=== PATIENT | female | born 1990 | race Caucasian/White ===

== ENCOUNTER 2017-07-05 15:05 | Observation (INO) | payer OTHER ==
[2017-07-05 15:09] VITALS: BMI 21.0
--- NOTE | 2017-07-05 15:25 | PDOC ---
History of Present Illness - General History Source: Patient Exam Limitations: No Limitations <Easton Dumont - Last Filed: 07/05/17 19:12> <DeborahDickson arreola - Last Filed: 07/11/17 00:17> - General Chief Complaint: Syncope/Near Syncope Stated Complaint: SYNCOPE Time Seen by Provider: 07/05/17 15:22 - History of Present Illness Initial Comments: 07/05/17 18:41 The patient is a 26 year old female with no significant past medical history who presents to the ED s/p a syncopal episode earlier today. Patient was at work when she lost consciousness 2 hours prior to her arrival to the ED. As per coworkers, the patient lost consciousness, fell onto her face, and became very stiff. Patient states this episode lasted for 2 minutes. She does not recall the syncopal episode but reports feeling very hot prior to losing consciousness and occsaional lightheadedness. 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 Patient denies eating any food earlier today and did not have anythin to drink beside drinking 1 can of redbull and doing 1 line of coke. As per boyfriend, the patient was acting very slow, tired, and not speaking on her way to the ED and had drank some water prior to arrival.. On interview, patient appears at baseline and was feeling better. There was no associated chest pain, headache, dizziness, sob, abd pain, back pain, vision changes, numbness/tingling weakness earlier today prior to syncopal episode. No recent illness, fever/chills,cough, swelling, diarrhea, melena, bpr. Patient reports a history of one-time seizure, lasting 2-3 minutes before resolving, in her early 20s, and did not get treated for it. Denies recent travel. 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 Patient reports Xanax, Cocaine, and alcohol use. (Easton Dumont) Past History <Easton Dumont - Last Filed: 07/05/17 19:12> - Past Medical History Seizures: Yes - Psycho/Social/Smoking Cessation Hx Anxiety: No Suicidal Ideation: No Smoking Status: Yes Smoking History: Current every day smoker Have you smoked in the past 12 months: Yes Number of Cigarettes Smoked Daily: 20 Information on smoking cessation initiated: Yes 'Breaking Loose' booklet given: 07/05/17 Hx Alcohol Use: (social) <Dickson Cabrera - Last Filed: 07/11/17 00:17> - Past Medical History Allergies/Adverse Reactions: Allergies Allergy/AdvReac Type Severity Reaction Status Date / Time No Known Allergies Allergy Verified 07/05/17 15:05 Home Medications: Ambulatory Orders Cephalexin Monohydrate [Keflex -] 500 mg PO Q6H #28 capsule 07/06/17 Levetiracetam [Keppra -] 1,000 mg PO BID #60 tablet 07/06/17 Review of Systems - Review of Systems Able to Perform ROS?: Yes All Other Systems: Reviewed and Negative <Easton Dumont - Last Filed: 07/05/17 19:12> <Dickson Cabrera - Last Filed: 07/11/17 00:17> - Review of Systems Comments:: 07/05/17 18:41 CONSTITUTIONAL: No reported: Fever, Chills, Diaphoresis, Generalized Weakness, Malaise, Loss of Appetite HEENT: No reported: Rhinorrhea, Nasal Congestion, Throat Pain, Throat Swelling, Difficulty Swallowing, Mouth Swelling, Ear Pain, Eye Pain, Visual Changes CARDIOVASCULAR: No reported: Chest Pain, Syncope, Palpitations, Irregular Heart Rate, Lightheadedness, Peripheral Edema RESPIRATORY: No reported: Cough, Shortness of Breath, SOB with Exertion, Orthopnea, Wheezing , Stridor, Hemoptysis GASTROINTESTINAL: No reported: Abdominal pain, Abdominal Distension, Nausea, Vomiting, Diarrhea, Constipation, Melena, Hematochezia GENITOURINARY: No reported: Dysuria, Frequency, Urgency, Hesitancy, Flank Pain, Genital Pain MUSCULOSKELETAL: No reported: Myalgia, Arthralgia, Joint Swelling, Back pain, Neck Pain SKIN: No reported: Rash, Itching, Pallor HEMEATOLOGIC/IMMUNOLOGIC: No reported: Easy Bleeding, Easy Bruising, Lymphadenopathy, Frequent infections ENDOCRINE: No reported: Unexplained Weight Gain, Unexplained Weight Loss, Heat Intolerance , Cold Intolerance NEUROLOGIC: + syncope No reported: Headache, Focal Weakness, Paresthesias, Vertigo, Lightheadedness, Unsteady Gait, Mental Status Changes, Incontinence PSYCHIATRIC: No reported: Anxiety, Depression (Easton Dumont) *Physical Exam <Easton Dumont - Last Filed: 07/05/17 19:12> <Dickson Cabrera - Last Filed: 07/11/17 00:17> - Vital Signs Last Vital Signs Temp Pulse Resp BP Pulse Ox 98.3 F 51 L 17 107/67 100 07/06/17 14:46 07/06/17 14:46 07/06/17 14:46 07/06/17 14:46 07/06/17 14:46 - Physical Exam Comments: 07/05/17 18:42 GENERAL: The patient is awake, alert, and fully oriented, Nontoxic - in no acute distress. HEAD: Normocephalic, atraumatic. EYES: extraocular movements intact, sclera anicteric, conjunctiva clear. ENT: + dry mucous membranes. Normal voice. NECK: Normal range of motion, supple LUNGS: Breath sounds equal, clear to auscultation bilaterally. No wheezes, no rhonchi, no rales. HEART: Regular rate and rhythm, without murmur, rub or gallop. ABDOMEN: Soft, nontender, normoactive bowel sounds. No guarding, no rebound.No CVA tenderness EXTREMITIES: Normal range of motion, no edema. No clubbing or cyanosis. No cords, erythema, or tenderness. MUSCULOSKELETAL: + Mild tenderness in the thoracic on the left NEUROLOGICAL: No facial assymetry, Normal speech, PSYCH: Normal mood, normal affect. SKIN: + Small ecchymosis on the right cheek without any focal bony tenderness. Warm, Dry, normal turgor (Easton Duomnt) Heart Score/ECG Review <Easton Dumont - Last Filed: 07/05/17 19:12> <Dickson Cabrera - Last Filed: 07/11/17 00:17> - ECG Impressions Comment:: 07/05/17 16:00 Twelve-lead EKG was performed and reviewed by me. There is normal sinus rhythm with a normal rate. Rate of 81 The axis is normal. The intervals are normal. There is normal R wave progression There are no ST or T wave abnormalities. Impression: Normal twelve-lead EKG (Dickson Cabrera) ED Treatment Course - LABORATORY CBC & Chemistry Diagram: 07/05/17 15:30 07/05/17 15:30 <Easton Dumont - Last Filed: 07/05/17 19:12> - LABORATORY CBC & Chemistry Diagram: 07/06/17 08:10 07/06/17 08:10 <Dickson Cabrera - Last Filed: 07/11/17 00:17> - ADDITIONAL ORDERS Additional order review: 07/05/17 18:20 Urine Culture - Final Urine - Urine Clean Catch Escherichia Coli 07/05/17 15:30 RBC 4.07 MCV 92.4 MCHC 35.3 RDW 14.0 MPV 8.4 Neutrophils % 83.3 H Lymphocytes % 13.1 Monocytes % 2.4 L Eosinophils % 0.3 Basophils % 0.9 - RADIOLOGY Radiology Studies Ordered: Category Date Time Status HEAD CT WITHOUT CONTRAST [CT] Stat CT Scan 07/05/17 17:54 Completed CHEST X-RAY PORTABLE* [RAD] Stat Radiology 07/05/17 18:20 Completed Radiograph Interpretation: 07/05/17 18:59 CT/HEAD CT WITHOUT CONTRAST Impression: No evidence of a focal intracranial lesion or hemorrhage seen. Reported by: Wilver Cox 07/05/17 19:12 RAD/CHEST X-RAY PORTABLE Impression: Unremarkable examination. Reported by: Wilver Cox (Easton Dumont) - Medications Given in the ED: ED Medications Discontinued Medications Generic Name Dose Route Start Last Admin Trade Name Freq PRN Reason Stop Dose Admin Acetaminophen 1,000 mg 07/05/17 20:24 07/05/17 18:10 Ofirmev Injection - IVPB 07/05/17 20:25 1,000 mg NOW ONE Administration Acetaminophen 650 mg 07/06/17 00:09 07/06/17 00:00 Tylenol Suppository - SC 650 mg Q6H PRN Administration FEVER OR PAIN Sodium Chloride 1,000 mls @ 1,000 mls/hr 07/05/17 15:29 07/05/17 15:30 Normal Saline - IV 07/05/17 16:28 1,000 mls/hr .Q1H ONE Administration Ceftriaxone Sodium 1 gm/ 50 mls @ 100 mls/hr 07/05/17 17:59 07/05/17 18:35 Dextrose IVPB 07/05/17 18:28 100 mls/hr ONCE ONE Administration Dextrose/Sodium Chloride 1,000 mls @ 75 mls/hr 07/06/17 03:45 07/06/17 05:30 D5-1/2ns - IV 75 mls/hr ASDIR JOSIE Administration Levetiracetam 1,500 mg 07/05/17 19:01 07/05/17 19:05 Keppra Injection - IVPB 07/05/17 19:02 1,500 mg ONCE ONE Administration Levetiracetam 1,000 mg 07/06/17 10:00 07/06/17 10:27 Keppra Injection - IVPB 1,000 mg BID JOSIE Administration Lorazepam 2 mg 07/05/17 18:03 07/05/17 17:50 Ativan Injection - IVPUSH 07/05/17 18:04 2 mg ONCE ONE Administration Medical Decision Making <Easton Dumont - Last Filed: 07/05/17 19:12> <Dickson Cabrera - Last Filed: 07/11/17 00:17> - Medical Decision Making 07/05/17 15:42 26y F no notable pmhx presents with syncopal episode with possible seizure like activity whiel at work. The pt did not eat or drink anything this morning beside a redbull, and small amt of cocaine. The pt remembers feeling warm prior to syncopizing, it was witnessed by work mates and tehre was smoe tonic activity noted, no tongue biting nor urinary incontinence. on exam pt appears well, in no distress, she has a small ecchymotic markw ithout focal bony tendernes on her R cheek. suspect dehydration --> syncope with some tonic activty due to hypoperfusion of brain rather than true seizure. will hydrate the pt will ck basic labs, ua/preg will reassess A portion of this note was documented by scribe services under my direction. I have reviewed the details of the note, within reason, and agree with the documentation with the following case summary and management plan written by me 07/05/17 17:56 the pt had an tonic clonic seizure episode, lasting approximately 1 minute, with post ictal period seizure activity stopped prior to administration of 2mg ativan pts UA c/w uti will further hydrate the pt will obtain CT head to r/o organic brain dz pt had a rectal temp will recheck a UA from a catherized specime to confirm UTI - considered meningitis, but pt denies any headache/neck pain and has no signs of meningusmus if not will need LP to r/o meningitus/encephalitis Also consider possible toxicologic cause due to the patient's history of drug use, will send a utox last ETOH or xanax use was last week. 07/05/17 19:02 07/05/17 19:03 CT negative for acute pathology case dw Dr. arzola agree with observation woud load with keprra for now as this is her 2nd seizure even if it was induced by tox vs infectious CRITICAL CARE DOCUMENTATION: I spent ~35 minutes of Critical Care time, excluding separately billable procedures, involving high complexity decision making to assess, manipulate and support vital system function(s) to treat single or multiple vital organ system failure and/or to prevent further life threatening deterioration of the patient' s condition. 07/05/17 19:[address] arzola pt may want to leave AMA as she does not like being in hospitals I had an extensive discussion with the patient regarding staying in the hospital but its seems that she still wants to leave. dr. grubbs is in hospital and will try to see her before she leaves [facility] with treating her with 1000mg BID of keppra an abx for UTI will sign pt out to dr. moeller to reassess the pt and disposition the patient (Dickson Cabrera) *DC/Admit/Observation/Transfer <Easton Dumont - Last Filed: 07/05/17 19:12> <Dickson Cabrera - Last Filed: 07/11/17 00:17> Diagnosis at time of Disposition: UTI, Seizure - Discharge Dispostion Condition at time of disposition: Stable - Prescriptions - Attestations Scribe Attestion: 07/05/17 18:42 Documentation prepared by Easton Dumont, acting as medical office supervisor for Dickson Cabrera MD (Easton Dumont)
[2017-07-05] MEDS ORDERED: SODIUM CHLORIDE 1,000 ML IV ONE (15:29)
[2017-07-05 16:13] LABS: PH,URINE 7.5 (4.5-8); URINE BILIRUBIN Negative (NEGATIVE); URINE BLOOD 1+ (NEGATIVE); URINE GLUCOSE (UA) Negative (NEGATIVE); URINE KETONE Negative (NEGATIVE); URINE NITRITE Negative (NEGATIVE); URINE UROBILINOGEN 0.2 (0.2-1.0)
[2017-07-05 16:16] LABS: URINE COLOR YELLOW; URINE LEUK ESTERASE TRACE (NEGATIVE); URINE PROTEIN 1+ (NEGATIVE)
[2017-07-05 16:17] LABS: URINE APPEARANCE CLOUDY
[2017-07-05 16:28] LABS: BASOPHIL 0.9 % (0-2.0); EOSINOPHIL 0.3 % (0-4.5); MCH 32.6 pg (25.7-33.7); MCHC 35.3 g/dl (32.0-36.0); MEAN CELL VOLUME 92.4 fl (80-96); MEAN PLT VOLUME 8.4 fl (7.5-11.1); NEUTROPHILS 83.3 % (42.8-82.8); PLATELET COUNT 214 K/MM3 (134-434); WHITE BLOOD COUNT 11.9 K/mm3 (4.0-10.8)
[2017-07-05 16:31] LABS: ALBUMIN 3.9 g/dl (3.5-5.0); ALK PHOS 56 U/L (32-92); ANION GAP 7 (8-16); BILIRUBIN,TOTAL 0.6 mg/dl (0.2-1.0); CALCIUM 8.9 mg/dl (8.4-10.2); CO2 24 mmol/L (22-28); CREATININE 0.6 mg/dl (0.6-1.3); GLUCOSE,RANDOM 106 mg/dl (74-106); SGOT/AST 33 U/L (10-42); SGPT/ALT 28 U/L (10-40); TOT PROT 6.2 g/dl (6.4-8.3)
[2017-07-05 17:07] LABS: URINE BACTERIA MANY /hpf (NEGATIVE); URINE RBC 0-2 /hpf (0-3)
[2017-07-05] MEDS ORDERED: CEFTRIAXONE 1 GM in DEXTROSE 5%-WATER - 50 ML IVPB ONE (17:59)
[2017-07-05] MEDS ORDERED: cefTRIAXone SODIUM 1 GM VIAL ONE (18:02)
[2017-07-05] MEDS ORDERED: ACETAMINOPHEN INJECTION 100 ML IVPB ONE (18:07)
[2017-07-05 18:34] LABS: URINE BILIRUBIN Negative (NEGATIVE); URINE BLOOD 1+ (NEGATIVE); URINE GLUCOSE (UA) Negative (NEGATIVE); URINE KETONE Negative (NEGATIVE); URINE LEUK ESTERASE Negative (NEGATIVE); URINE NITRITE Positive (NEGATIVE); URINE PROTEIN Trace (NEGATIVE); URINE UROBILINOGEN 0.2 (0.2-1.0)
[2017-07-05 18:35] LABS: URINE APPEARANCE CLOUDY; URINE COLOR YELLOW
[2017-07-05] MEDS ORDERED: levETIRAcetam 500 MG/5 ML INJECTION VIAL IVPB ONE ×2 (19:01→19:04)
--- NOTE | 2017-07-05 19:55 | CON.NEURO ---
Consult - History of Present Illness History of Present Illness: 26 year old female , no significant medical problem. She has history of seizures 10 year ago . She is not taking any seizures medication. Patient had two episode of seizures. one in ed in front of ed Doctor. She has generalized tonic clonic activity, eye rolling back and body stiffened. Patient has post ictal confusion and shew as given ativan she was also doing cocaine this morning. History of anxiety No medical history in past - Alcohol/Substance Use Hx Alcohol Use: (social) - Smoking History Smoking history: Current every day smoker Have you smoked in the past 12 months: Yes Aproximately how many cigarettes per day: 20 Home Medications - Allergies Allergies/Adverse Reactions: Allergies Allergy/AdvReac Type Severity Reaction Status Date / Time No Known Allergies Allergy Verified 07/05/17 15:05 - Home Medications Home Medications: Ambulatory Orders NK [No Known Home Medication] 07/05/17 Physical Exam-Neuro Vital Signs: Vital Signs Temperature 98 F 07/05/17 15:05 Pulse Rate 97 H 07/05/17 15:05 Respiratory Rate 18 07/05/17 15:05 Blood Pressure 118/68 07/05/17 15:05 O2 Sat by Pulse Oximetry (%) 100 07/05/17 15:05 Labs: CBC, BMP 07/05/17 15:30 07/05/17 15:30 NIH Stroke Scale - Total Score NIH Stroke Scale Score: 0 Imaging - Results Cat Scan: Report Reviewed Assessment/Plan two episode of seizure Hpi 26 year old female , no significant medical problem. She has history of seizures 10 year ago . She is not taking any seizures medication. Patient had two episode of seizures. one in ed in front of ed Doctor. She has generalized tonic clonic activity, eye rolling back and body stiffened. Patient has post ictal confusion and shew as given ativan she was also doing cocaine this morning. History of anxiety No medical history in past Neurological Examination Alert follow command, post ictal confused no neck stiffness no face asymmetry, pupils is reactive, moving all extremity , strength is 5/5 ct head is normal Assessment- new onset seizures , due to cocaine and uti, no evidence of meningiits. Patient has two episode of seizure, and they could be induced Plan -- given keppra 1500 mg iv once and 1000 mg iv /po bid - may get mri of brain with without contrast if she stays or if it is possible otherwise mri and eeg can be done outpatinet - advise to keep her on keppra 1000 mg po bid for two weeks than slowly taper off as these could be induced seizure - no need for spinal tap , as no evidence of meningitis thanks for consult bianka arzola md
[2017-07-05] MEDS ORDERED: ACETAMINOPHEN 1000 MG/100 ML VIAL (NON FORMULARY) IVPB ONE (20:24)
[2017-07-05 20:40] LABS: URINE MARIJUANA THC POSITIVE ng/ml (CUTOFF=50)
--- NOTE | 2017-07-05 22:11 | HP ---
CHIEF COMPLAINT: Seizure Activity PCP: HISTORY OF PRESENT ILLNESS: This nis a 26 y/o woman with past medical history of Polysubstance Abuse, Cocaine and Heroin (2 yrs ago). Who presents to the ED with seizure activity x today. Patient reports having a seizure while at work and then at her boyfriend' s house after leaving work. Patient denies any alcohol or recreational drug use. As per the ED record- the patient admitted to Xanax and Alcohol use 2 weeks ago. Patient reports having dysuria for a couple of days. Patient denies fever, chills, cough, dizziness, MICHELLE, CP, AP, N/V/D, constipation. ER course was notable for: (1) CT Brain- negative ICH, mass or lesion (2) UA- +nitrate, +1 blood, many bacteria (3) UTOX- +Cocaine, THC Recent Travel: None PAST MEDICAL HISTORY: Polysubstance Abuse (Cocaine, Heroin) PAST SURGICAL HISTORY: Denies Social History: Smoking: Cigarettes 1PPD x 8 yrs Alcohol: Moderately- wine 6-8 glasses/week Drugs: Polysubstance Abuse- Cocaine, Heroin, Prescription (Xanax) Family History: Denies Allergies No Known Allergies Allergy (Verified 07/05/17 15:05) HOME MEDICATIONS: Home Medications Medication Instructions Recorded NK [No Known Home Medication] 07/05/17 REVIEW OF SYSTEMS CONSTITUTIONAL: Absent: fever, chills, diaphoresis, generalized weakness, malaise, loss of appetite, weight change HEENT: Absent: rhinorrhea, nasal congestion, throat pain, throat swelling, difficulty swallowing, mouth swelling, ear pain, eye pain, visual changes CARDIOVASCULAR: Absent: chest pain, syncope, palpitations, irregular heart rate, lightheadedness , peripheral edema RESPIRATORY: Absent: cough, shortness of breath, dyspnea with exertion, orthopnea, wheezing, stridor, hemoptysis GASTROINTESTINAL: Absent: abdominal pain, abdominal distension, nausea, vomiting, diarrhea, constipation, melena, hematochezia GENITOURINARY: dysuria Absent: frequency, urgency, hesitancy, hematuria, flank pain, genital pain MUSCULOSKELETAL: Absent: myalgia, arthralgia, joint swelling, back pain, neck pain SKIN: Absent: rash, itching, pallor HEMATOLOGIC/IMMUNOLOGIC: Absent: easy bleeding, easy bruising, lymphadenopathy, frequent infections ENDOCRINE: Absent: unexplained weight gain, unexplained weight loss, heat intolerance, cold intolerance NEUROLOGIC: seizure Absent: headache, focal weakness or paresthesias, dizziness, unsteady gait, mental status changes, bladder or bowel incontinence PSYCHIATRIC: Absent: anxiety, depression, suicidal or homicidal ideation, hallucinations. PHYSICAL EXAMINATION Vital Signs - 24 hr 07/05/17 21:16 Temperature 98.6 F Pulse Rate [ 86 Left Apical] Respiratory 20 Rate Blood Pressure 110/63 [Right Arm] O2 Sat by Pulse 99 Oximetry (%) GENERAL: Awake, alert, and fully oriented, in no acute distress. HEAD: Normal with no signs of trauma. EYES: Pupils equal/dilated, round and reactive to light, extraocular movements intact, sclera anicteric, conjunctiva clear. No lid lag. EARS, NOSE, THROAT: Ears normal, nares patent, oropharynx clear without exudates. Dry mucous membranes. NECK: Normal range of motion, supple without lymphadenopathy, JVD, or masses. LUNGS: Breath sounds equal, clear to auscultation bilaterally. No wheezes, and no crackles. No accessory muscle use. HEART: Regular rate and rhythm, normal S1 and S2 without murmur, rub or gallop. ABDOMEN: Soft, nontender, not distended, normoactive bowel sounds, no guarding, no rebound, no masses. No hepatomegaly or splenomegaly. MUSCULOSKELETAL: Normal range of motion at all joints. No bony deformities or tenderness. No CVA tenderness. UPPER EXTREMITIES: 2+ pulses, warm, well-perfused. No cyanosis. No clubbing. No peripheral edema. LOWER EXTREMITIES: 2+ pulses, warm, well-perfused. No calf tenderness. No peripheral edema. NEUROLOGICAL: Cranial nerves II-XII intact. Normal speech. Gait not observed. PSYCHIATRIC: Cooperative. Good eye contact. Appropriate mood and affect. SKIN: Warm, dry, normal turgor, no rashes or lesions noted, normal capillary refill, Piercings. Laboratory Results - last 24 hr 07/05/17 07/05/17 07/05/17 15:30 15:30 15:30 WBC 11.9 H RBC 4.07 Hgb 13.3 Hct 37.6 MCV 92.4 MCH 32.6 MCHC 35.3 RDW 14.0 Plt Count 214 MPV 8.4 Neutrophils % 83.3 H Lymphocytes % 13.1 Monocytes % 2.4 L Eosinophils % 0.3 Basophils % 0.9 Sodium 134 L Potassium 3.9 Chloride 103 Carbon Dioxide 24 Anion Gap 7 L BUN 10 Creatinine 0.6 Creat Clearance w eGFR > 60 Random Glucose 106 Calcium 8.9 Total Bilirubin 0.6 AST 33 ALT 28 Alkaline Phosphatase 56 Total Protein 6.2 L Albumin 3.9 Serum , Qual Negative Urine Color Yellow Urine Appearance Cloudy Urine pH 7.5 Ur Specific [place] 1.020 Urine Protein 1+ H Urine Glucose (UA) Negative Urine Ketones Negative Urine Blood 1+ Urine Nitrite Negative Urine Bilirubin Negative Urine Urobilinogen 0.2 Ur Leukocyte Esterase Trace H Urine RBC 0-2 Urine WBC 5-15 Ur Epithelial Cells Few Urine Bacteria Many Opiates Screen Methadone Screen Barbiturate Screen Phencyclidine Screen Ur Amphetamines Screen MDMA (Ecstasy) Screen Benzodiazepines Screen Cocaine Screen U Marijuana (THC) Screen 07/05/17 07/05/17 18:00 18:20 WBC RBC Hgb Hct MCV MCH MCHC RDW Plt Count MPV Neutrophils % Lymphocytes % Monocytes % Eosinophils % Basophils % Sodium Potassium Chloride Carbon Dioxide Anion Gap BUN Creatinine Creat Clearance w eGFR Random Glucose Calcium Total Bilirubin AST ALT Alkaline Phosphatase Total Protein Albumin Serum , Qual Urine Color Yellow Urine Appearance Cloudy Urine pH 7.0 Ur Specific [place] 1.025 Urine Protein Trace Urine Glucose (UA) Negative Urine Ketones Negative Urine Blood 1+ Urine Nitrite Positive Urine Bilirubin Negative Urine Urobilinogen 0.2 Ur Leukocyte Esterase Negative Urine RBC Urine WBC Ur Epithelial Cells Urine Bacteria Opiates Screen Negative Methadone Screen Negative Barbiturate Screen Negative Phencyclidine Screen Negative Ur Amphetamines Screen Negative MDMA (Ecstasy) Screen Negative Benzodiazepines Screen Negative Cocaine Screen Positive U Marijuana (THC) Screen Positive ASSESSMENT/PLAN: This is a 26 y/o woman with a PMHx of: Polysubstance Abuse. Admitted for New Onset Seizures for further evaluation of their emergent condition. Problem List - Problem (1) New onset seizure Assessment/Plan: - Likely secondary to Drug use vs Neurological vs Malignancy - Continue Tele monitoring - Keppra loading dose given in ED, will continue - Neurology following - Seizure Precautions - Fall Precautions - Will keep NPO and reassess in am - IVF - Monitor CBC, BMP Code(s): R56.9 - UNSPECIFIED CONVULSIONS (2) UTI (urinary tract infection) Assessment/Plan: - Patient reports dysuria - Urine Culture- pending - Ceftriaxone given in ED - Will start Macrodantin - Monitor vitals Code(s): N39.0 - URINARY TRACT INFECTION, SITE NOT SPECIFIED (3) Cocaine abuse Assessment/Plan: - Patient denies cocaine use - UTOX- +Cocaine - Consider Detox Consult or Detox in outpatient Code(s): F14.10 - COCAINE ABUSE, UNCOMPLICATED (4) Marijuana abuse Assessment/Plan: - Patient denies use of marijuana - UTOX- +THC Code(s): F12.10 - CANNABIS ABUSE, UNCOMPLICATED (5) DVT prophylaxis Assessment/Plan: - OOB - SCDs Code(s): WXL2098 - Visit type - Emergency Visit Emergency Visit: Yes ED Registration Date: 07/05/17 Care time: The patient presented to the Emergency Department on the above date and was hospitalized for further evaluation of their emergent condition. - New Patient This patient is new to me today: Yes Date on this admission: 07/05/17 - Critical Care Critical Care patient: No
[2017-07-06] MEDS ORDERED: ACETAMINOPHEN 650 MG SUPP.RECT PR PRN (00:09)
[2017-07-06] MEDS ORDERED: DEXTROSE 5%-0.45% SALINE 1,000 ML IV SCH (03:45)
[2017-07-06 08:18] LABS: BASOPHIL 1.1 % (0-2.0); EOSINOPHIL 0.9 % (0-4.5); MCH 31.9 pg (25.7-33.7); MCHC 33.8 g/dl (32.0-36.0); MEAN CELL VOLUME 94.5 fl (80-96); MEAN PLT VOLUME 8.1 fl (7.5-11.1); NEUTROPHILS 54.5 % (42.8-82.8); PLATELET COUNT 180 K/MM3 (134-434); RDW 13.9 % (11.6-15.6); WHITE BLOOD COUNT 8.5 K/mm3 (4.0-10.8)
[2017-07-06 08:34] LABS: ANION GAP 4 (8-16); CALCIUM 8.1 mg/dl (8.4-10.2); CO2 23 mmol/L (22-28); CREATININE 0.6 mg/dl (0.6-1.3); GLUCOSE,RANDOM 101 mg/dl (74-106); MAGNESIUM 1.9 mg/dL (1.8-2.4)
[2017-07-06] MEDS ORDERED: levETIRAcetam 500 MG/5 ML INJECTION VIAL IVPB SCH (10:00)
[2017-07-06 14:47] VITALS: BP 107/67; PULSE 51; TEMP 98.3
--- NOTE | 2017-07-06 14:55 | DS ---
Physical Exam: SUBJECTIVE: Patient seen and examined at bedside. OBJECTIVE: Vital Signs Period Temp Pulse Resp BP Sys/Pate Pulse Ox Last 24 Hr 98.3 F-98.9 F 51-86 17-20 107-122/52-67 97-100 PHYSICAL EXAM GENERAL: The patient is awake, alert, and fully oriented, in no acute distress. HEAD: Normal with no signs of trauma. EYES: PERRL, extraocular movements intact, sclera anicteric, conjunctiva clear. ENT: Ears normal, nares patent, oropharynx clear without exudates, moist mucous membranes. NECK: Trachea midline, full range of motion, supple. LUNGS: Breath sounds equal, clear to auscultation bilaterally, no wheezes, no crackles, no accessory muscle use. HEART: Regular rate and rhythm, S1, S2 without murmur, rub or gallop. ABDOMEN: Soft, nontender, nondistended, normoactive bowel sounds, no guarding, no rebound, no hepatosplenomegaly, no masses. EXTREMITIES: 2+ pulses, warm, well-perfused, no edema. NEUROLOGICAL: Cranial nerves II through XII grossly intact. Normal speech, gait not observed. PSYCH: Normal mood, normal affect. SKIN: Warm, dry, normal turgor, no rashes or lesions noted. LABS Laboratory Results - last 24 hr 07/06/17 07/06/17 08:10 08:10 WBC 8.5 RBC 3.85 Hgb 12.3 Hct 36.3 MCV 94.5 MCH 31.9 MCHC 33.8 RDW 13.9 Plt Count 180 MPV 8.1 Neutrophils % 54.5 D Lymphocytes % 37.4 D Monocytes % 6.1 D Eosinophils % 0.9 D Basophils % 1.1 Sodium 136 Potassium 3.4 L Chloride 109 H Carbon Dioxide 23 Anion Gap 4 L BUN 8 Creatinine 0.6 Random Glucose 101 Calcium 8.1 L Magnesium 1.9 HOSPITAL COURSE: Date of Admission:07/05/17 Date of Discharge: 07/06/17 Minutes to complete discharge: 40 Discharge Summary Reason For Visit: SEIZURE/UTI Current Active Problems Cocaine abuse (Acute) DVT prophylaxis (Acute) Marijuana abuse (Acute) New onset seizure (Acute) UTI (urinary tract infection) (Acute) Hospital Course: The patient is a 26 year old female with no significant past medical history who presented to the ED s/p a syncopal episode earlier today. Patient was at work when she lost consciousness 2 hours prior to her arrival to the ED. As per coworkers, the patient lost consciousness, fell onto her face, and became very stiff. Patient stated this episode lasted for 2 minutes. She does not recall the episode but reports feeling very hot prior to losing consciousness and occsaional lightheadedness. 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 Patient denied eating any food earlier in the day and did not have anything to drink except 1 can of redbull and doing 1 line of cocaine. Per boyfriend, the patient was acting very slow, tired, and not speaking on her way to the ED and had drank some water prior to arrival. On interview, patient appeared at baseline and was feeling better. There was no associated chest pain, headache, dizziness, sob, abd pain, back pain, vision changes, numbness/tingling weakness earlier today prior to syncopal episode. No recent illness, fever/chills,cough, swelling, diarrhea, melena, bpr. Patient reports a history of one-time seizure, lasting 2-3 minutes before resolving, in her early 20s, and did not get treated for it. While in the ER, pt witnessed to have tonic-clonic seizure-like activity. (1) New onset seizure Assessment/Plan: - Likely secondary to Drug use - Keppra 1000mg bid as outpatient for 15 days - Neurology f/u with Dr. Horvath as outpatient - CT head (-) for intracranial pathology - MRI head ww/o contrast (-) for intracranial pathology - EEG recommended as outpatient Code(s): R56.9 - UNSPECIFIED CONVULSIONS (2) UTI (urinary tract infection) Assessment/Plan: - Patient reports dysuria - Urine Culture- pending - Ceftriaxone given in ED - Keflex as outpatient for 7 days Code(s): N39.0 - URINARY TRACT INFECTION, SITE NOT SPECIFIED (3) Cocaine abuse Assessment/Plan: - Patient admits cocaine use - UTOX- +Cocaine - Recommend detox as outpatient Code(s): F14.10 - COCAINE ABUSE, UNCOMPLICATED (4) Marijuana abuse Assessment/Plan: - Patient admits use of marijuana - UTOX- +THC - Recommend detox as outpatient Code(s): F12.10 - CANNABIS ABUSE, UNCOMPLICATED Condition: Stable - Instructions Diet, Activity, Other Instructions: Stop using drugs. Stop smoking. Drink plenty of fluids. Take Keflex 4 times every day until all tablets are taken. Take Keppra 1000mg twice daily for the next [address] Horvath or any other neurologist within the next 5 days. Return to ER for seizures, severe headaches or any other concerns. Referrals: Tera Horvath MD [Staff Physician] - Disposition: HOME - Home Medications Comprehensive Discharge Medication List: Ambulatory Orders NK [No Known Home Medication] 07/05/17 This patient is new to me today: Yes Date on this admission: 07/07/17 Emergency Visit: Yes ED Registration Date: 07/05/17 Care time: The patient presented to the Emergency Department on the above date and was hospitalized for further evaluation of their emergent condition. Critical Care patient: No - Discharge Referral Referred to [facility] Med P.C.: No
--- NOTE | 2017-07-08 07:37 | EKG ---
Test Reason : Blood Pressure : / mmHG Vent. Rate : 081 BPM Atrial Rate : 081 BPM P-R Int : 156 ms QRS Dur : 078 ms QT Int : 378 ms P-R-T Axes : 070 058 051 degrees QTc Int : 439 ms NORMAL SINUS RHYTHM NORMAL ECG NO PREVIOUS ECGS AVAILABLE Confirmed by BOOKER VEGA MD ([id number]) on 07/08/2017 7:37:06 AM Referred By: MD JIANG Confirmed By:BOOKER VEGA MD
== END 2017-07-06 15:51 | disposition home or self-care (01) ==
LOC: FER 15:05 → FM/S 21:09
PROVIDERS: ADMIT Internal Medicine; ATTEND Nurse Practitioner Family
PROC: 3E03329 Introduction of Other Anti-infective into Peripheral Vein, Percutaneous Approach (ICD-10-PCS; principal; 2017-07-05)
PROC: 3E033GC Introduction of Other Therapeutic Substance into Peripheral Vein, Percutaneous Approach (ICD-10-PCS; 2017-07-05)
PROC: 3E0337Z Introduction of Electrolytic and Water Balance Substance into Peripheral Vein, Percutaneous Approach (ICD-10-PCS; 2017-07-05)
DX: R56.9 Unspecified convulsions (principal); N39.0 Urinary tract infection, site not specified; F14.10 Cocaine abuse, uncomplicated; F12.10 Cannabis abuse, uncomplicated; F17.210 Nicotine dependence, cigarettes, uncomplicated
CPT/HCPCS: 36415; 70450-TC; 70553-TC; 71010-TC; 80048; 80053; 80307; 81003; 81015; 83735; 84703; 85025; 87086; 87186; 93005; 99285-25; G0378

== ENCOUNTER 2024-05-29 22:39 | Emergency (ER) | payer OTHER ==
[2024-05-29 22:50] VITALS: RESP 18; BMI 25.4
[2024-05-29] MEDS ORDERED: DIPHTH,PERTUSS(ACELL),TET 0.5 ML DISP.SYRIN IM ONE (23:11)
[2024-05-29 23:14] VITALS: BP 120/83; PULSE 78; TEMP 98.6
[2024-05-29] MEDS: DIPHTH,PERTUSS(ACELL),TET 0.5 ML DISP.SYRIN IM ONE (23:14)
[2024-05-30] MEDS ORDERED: CEPHALEXIN MONOHYDRATE 250 MG CAPSULE (FP) ONE (01:09)
[2024-05-30] MEDS: CEPHALEXIN MONOHYDRATE 250 MG CAPSULE (FP) PO ONE (01:10)
== END 2024-05-30 01:11 | disposition home or self-care (01) ==
LOC: FER 22:39
PROC: 0HQFXZZ Repair Right Hand Skin, External Approach (ICD-10-PCS; principal; 2024-05-29)
PROC: 3E0234Z Introduction of Serum, Toxoid and Vaccine into Muscle, Percutaneous Approach (ICD-10-PCS; 2024-05-29)
DX: S61.214A Laceration without foreign body of right ring finger without damage to nail, initial encounter (principal); W26.8XXA Contact with other sharp object(s), not elsewhere classified, initial encounter; Z23 Encounter for immunization
CPT/HCPCS: 12001-25; 73140-TC-RT-FY; 90471; 90715; 99283-25

== ENCOUNTER 2024-06-11 20:09 | Emergency (ER) | payer OTHER ==
[2024-06-11 20:16] VITALS: BP 142/85; PULSE 92; RESP 18; TEMP 98; BMI 23.8
== END 2024-06-11 21:10 | disposition home or self-care (01) ==
LOC: FER 20:09
DX: Z48.02 Encounter for removal of sutures (principal)
CPT/HCPCS: 99281-25